=== PATIENT | female | born 1995 | race Caucasian/White ===

== ENCOUNTER 2019-02-09 22:30 | Emergency (ER) | payer MEDICAID ==
[~2019-02-09] VITALS: Ht 172.7 cm; Wt 97.5 kg
[2019-02-09] MEDS ORDERED: SULFAMETH/TRIMETH 800/160 MG TABLET PO ONE (23:30)
[2019-02-09] MEDS ORDERED: IBUPROFEN 600 MG TABLET PO ONE (23:30)
--- NOTE | 2019-02-09 23:57 | NUR ---
Pt. 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
--- NOTE | 2019-02-10 | NUR ---
Patient discharged to home in stable conditon. Written and verbal after care instructions given. Patient verbalizes understanding of instructions. Pt. d/c per MD order, d/c papers signed, all belongings w/ pt., ID band removed, ambulated off unit w/ steady gait, NAD
== END 2019-02-10 00:03 | disposition home or self-care (01) ==
LOC: ER 22:30
DX: H60.92 Unspecified otitis externa, left ear (principal); B95.8 Unspecified staphylococcus as the cause of diseases classified elsewhere; F17.200 Nicotine dependence, unspecified, uncomplicated; Z88.8 Allergy status to other drugs, medicaments and biological substances
CPT/HCPCS: A4663